=== PATIENT | female | born 1960 | race Caucasian/White ===

== ENCOUNTER 2022-02-27 16:23 | Inpatient (IN) | payer OTHER ==
[~2022-02-27] VITALS: Ht 165 cm; Wt 94.7 kg
[2022-02-27 16:32] LABS: BASOPHILS # (AUTO) 0.1 10^3/uL (0.0-0.1); BASOPHILS % (AUTO) 1 % (0-10); EOSINOPHILS # (AUTO) 0.3 10^3/uL (0.0-0.3); EOSINOPHILS % (AUTO) 2 % (0-10); HEMATOCRIT 48 % (35-52); HEMOGLOBIN 15.9 g/dL (11.5-16.0); LYMPHOCYTES # (AUTO) 4.8 10^3/uL (1.0-4.0); LYMPHOCYTES % (AUTO) 28 % (12-44); MEAN CORPUSCULAR HEMOGLOBIN 30 pg (25-34); MEAN CORPUSCULAR HGB CONC 33 g/dL (32-36); MEAN CORPUSCULAR VOLUME 90 fL (80-99); MEAN PLATELET VOLUME 10.4 fL (9.0-12.2); MONOCYTES # (AUTO) 1.4 10^3/uL (0.0-1.0); MONOCYTES % (AUTO) 8 % (0-12); NEUTROPHILS # (AUTO) 10.7 10^3/uL (1.8-7.8); NEUTROPHILS % (AUTO) 62 % (42-75); PLATELET COUNT 292 10^3/uL (130-400); WHITE BLOOD COUNT 17.3 10^3/uL (4.3-11.0)
[2022-02-27] MEDS ORDERED: hydrALAZINE (APESOLINE) 20 MG/ML VIAL IV STA (16:32)
[2022-02-27] MEDS ORDERED: ONDANSETRON 4 MG/2 ML (SDV) Z0FRAN ONE ×2 (16:43→17:01)
[2022-02-27] MEDS ORDERED: ONDANSETRON 4 MG/2 ML (SDV) Z0FRAN IVP STA ×2 (16:44→17:00)
[2022-02-27 16:50] LABS: PROTHROMBIN TIME PATIENT 13.7 SEC (12.2-14.7)
--- NOTE | 2022-02-27 16:51 | ED Chest Pain ---
General Chief Complaint: Chest Pain Stated Complaint: CHEST PAIN; SOB Source: patient History of Present Illness Date Seen by Provider: Feb 27, 2022 Time Seen by Provider: 16:25 Initial Comments 61-year-old female presenting with complaints of chest pain that started about 30 minutes prior to arrival. She states that she was also short of breath with this. She had taken her lisinopril 10 mg as well as her new medicine for high cholesterol. She also took aspirin at home. This resolved after her pain started 30 minutes ago. She states that it is just "pain" and cannot describe it in any more detail. She started the lisinopril and cholesterol medicines within the last week. She states at home her blood pressure was 240/106 when she was having chest pain. Prior to starting the lisinopril that had been running over 200 for her systolic pressure. In the last few days she said that her pressure was down into the 150s and 160s. She states that she was just sitting working on her schedule when the pain started. Timing/Duration: 1/2 hour Severity/Quality: severe ("pain") Location: substernal Radiation: no radiation Activities at Onset: rest Prior CP/Workup: angina ASA po METAL BASE BLOCKER: Yes NTG SL METAL BASE BLOCKER: No Associated Symptoms: No abdominal pain, No back pain; diaphoresis; No dizziness, No edema; fatigue; No fever/chills, No headache, No heartburn, No nausea/vomiting, No rash; shortness of breath; No swelling/lump in chest, No sy ncope Allergies and Home Medications Allergies Coded Allergies: meperidine (Verified Allergy, Unknown, 02/27/22) propoxyphene (Verified Allergy, Unknown, 02/27/22) Patient Home Medication List Home Medication List Reviewed: Yes Review of Systems Review of Systems Constitutional: No chills, No fever EENTM: No Symptoms Reported Respiratory: See HPI Cardiovascular: See HPI Gastrointestinal: No Symptoms Reported Genitourinary: No Symptoms Reported Musculoskeletal: no symptoms reported Skin: no symptoms reported Psychiatric/Neurological: No Symptoms Reported Endocrine: No Symptoms Reported Past Dbpekrb-Lctbyc-Tfqihn Hx Patient Social History Tobacco Use?: Yes Tobacco type used: Cigarettes Use of E-Cig and/or Vaping dev: No Substance use?: No Alcohol Use?: No Past Medical History Surgery/Hospitalization HX: Diabetes, hypertension, hypercholesterolemia Physical Exam Vital Signs Vital Signs - First Documented 02/27/22 02/27/22 16:23 17:44 Temp 36.2 Pulse 89 Resp 20 B/P (MAP) 208/82 (124) Pulse Ox 97 O2 Delivery Room Air O2 Flow Rate 4.00 Capillary Refill : Height, Weight, BMI Height: '" Weight: lbs. oz. kg; BMI Method: General Appearance: Anxious, Obese HEENT: PERRL/EOMI, Pharynx Normal Neck: Full Range of Motion, Normal Inspection, Non Tender, Supple Respiratory: Chest Non Tender, Lungs Clear, Normal Breath Sounds, No Accessory Muscle Use, No Respiratory Distress Cardiovascular: Regular Rate, Rhythm, Normal Peripheral Pulses Gastrointestinal: Normal Bowel Sounds, No Pulsatile Mass, Non Tender, Soft Rectal: Deferred Extremity: Normal Capillary Refill, Normal Inspection, No Pedal Edema Neurologic/Psychiatric: Alert, Oriented x3, elephant keeper II-XII Norm as Tested Skin: Normal Color, Warm/Dry Procedures/Interventions CPR: Patient went into ventricular fibrillation and and became unresponsive. CPR was started with [id number] ventilations to support her cardiac and respiratory systems. She did have 1 cardioversion performed with shock of 200 J. CPR was immediately restarted after the shock and patient became responsive about 30 to 45 seconds later. She was in a sinus rhythm at that point. Rhythm: V-Fibrillation Critical Care Note Critical Care Total Time (minutes) 60minutes Progress 60 minutes of critical care time was spent with the patient. Time excludes separately billable procedures. Patient history obtained from her directly,. Time was spent obtaining history from the patient, ordering tests and reviewing results, ordering interventions and reviewing response, discussion with consultants, documentation in the chart. Patient was at risk of cardiovascular collapse and did require cardioversion when she went into ventricular fibrillation. Progress/Results/Core Measures Results/Orders Lab Results Laboratory Tests Test 02/27/22 16:26 Range/Units White Blood Count 17.3 H 4.3-11.0 10^3/uL Red Blood Count 5.39 H 3.80-5.11 10^6/uL Hemoglobin 15.9 11.5-16.0 g/dL Hematocrit 48 35-52 % Mean Corpuscular Volume 90 80-99 fL Mean Corpuscular Hemoglobin 30 25-34 pg Mean Corpuscular Hemoglobin Concent 33 32-36 g/dL Red Cell Distribution Width 13.4 10.0-14.5 % Platelet Count 292 130-400 10^3/uL Mean Platelet Volume 10.4 9.0-12.2 fL Immature Granulocyte % (Auto) 0 % Neutrophils (%) (Auto) 62 42-75 % Lymphocytes (%) (Auto) 28 12-44 % Monocytes (%) (Auto) 8 0-12 % Eosinophils (%) (Auto) 2 0-10 % Basophils (%) (Auto) 1 0-10 % Neutrophils # (Auto) 10.7 H 1.8-7.8 10^3/uL Lymphocytes # (Auto) 4.8 H 1.0-4.0 10^3/uL Monocytes # (Auto) 1.4 H 0.0-1.0 10^3/uL Eosinophils # (Auto) 0.3 0.0-0.3 10^3/uL Basophils # (Auto) 0.1 0.0-0.1 10^3/uL Immature Granulocyte # (Auto) 0.1 0.0-0.1 10^3/uL Prothrombin Time 13.7 12.2-14.7 SEC INR Comment 1.0 0.8-1.4 Activated Partial Thromboplast Time 27 24-35 SEC Sodium Level 138 135-145 MMOL/L Potassium Level 3.7 3.6-5.0 MMOL/L Chloride Level 100 98-107 MMOL/L Carbon Dioxide Level 23 21-32 MMOL/L Anion Gap 15 H 5-14 MMOL/L Blood Urea Nitrogen 16 7-18 MG/DL Creatinine 0.55 L 0.60-1.30 MG/DL Estimat Glomerular Filtration Rate 103 BUN/Creatinine Ratio 29 Glucose Level 130 H 70-105 MG/DL Calcium Level 9.8 8.5-10.1 MG/DL Corrected Calcium 8.5-10.1 MG/DL Magnesium Level 2.0 1.6-2.4 MG/DL Total Bilirubin 0.3 0.1-1.0 MG/DL Aspartate Amino Transf (AST/SGOT) 21 5-34 U/L Alanine Aminotransferase (ALT/SGPT) 19 0-55 U/L Alkaline Phosphatase 130 40-136 U/L Troponin I < 0.30 <0.30 NG/ML Pro-B-Type Natriuretic Peptide 149.8 H <125.0 PG/ML Total Protein 7.5 6.4-8.2 GM/DL Albumin 4.6 H 3.2-4.5 GM/DL Lipase 46 8-78 U/L My Orders Orders - PROSPER VERDIN MD Cbc With Automated Diff (02/27/22 16:25) Magnesium (02/27/22 16:25) Chest 1 View Ap/Pa Only (02/27/22 16:25) Ekg Tracing (02/27/22 16:25) Comprehensive Metabolic Panel (02/27/22 16:25) Protime With Inr (02/27/22 16:25) Partial Thromboplastin Time (02/27/22 16:25) O2 (02/27/22 16:25) Monitor-Rhythm Ecg Trace Only (02/27/22 16:25) Ed Iv/Invasive Line Start (02/27/22 16:25) Lipase (02/27/22 16:25) Troponin I Fs (02/27/22 16:25) Probnp Fs (02/27/22 16:25) Hydralazine Injection (Apresoline Inject (02/27/22 16:32) Manual Differential (02/27/22 16:26) Ekg Tracing (02/27/22 16:43) Ondansetron Injection (Zofran Injectio (02/27/22 16:44) Ondansetron Injection (Zofran Injectio (02/27/22 16:43) Nitro Drip 88648 Mcg/D5w (Nitroglycerin (02/27/22 16:52) Heparin Drip 15030 Unit/500ml (Heparin (02/27/22 17:00) Heparin (Bolus Per Protocol) (Heparin (B (02/27/22 17:00) Initiate Heparin Acs Protocol (02/27/22 16:53) Morphine Injection (Morphine Injection (02/27/22 16:54) Nitro Drip 74287 Mcg/D5w (Nitroglycerin (02/27/22 16:53) Ondansetron Injection (Zofran Injectio (02/27/22 17:00) Ondansetron Injection (Zofran Injectio (02/27/22 17:01) Metoprolol Tartrate Injection (Lopressor (02/27/22 17:05) Lidocaine Drip (Xylocaine Drip) (02/27/22 17:12) Lidocaine 2% Bolus Syringe (Xylocaine Pete (02/27/22 17:13) Medications Given in ED Current Medications Medications Dose Ordered Sig/Donna Route Start Time Stop Time Status Last Admin Dose Admin Heparin Sodium (Porcine) ACS PROTOCOL 60 uni... PRN PRN IV 02/27/22 17:00 02/27/22 17:15 5,000 UNIT Nitroglycerin/ Dextrose 250 ml @ ud STK-MED ONCE IV 02/27/22 16:53 02/27/22 16:55 DC 02/27/22 17:05 6 MLS/HR Vital Signs/I&O 02/27/22 02/27/22 02/27/22 16:23 17:44 17:56 Temp 36.2 Pulse 89 87 Resp 20 18 B/P (MAP) 208/82 (124) 151/80 Pulse Ox 97 97 94 O2 Delivery Room Air Nasal Cannula Nasal Cannula O2 Flow Rate 4.00 4.00 Progress Progress Note #1: Progress Note Electrocardiogram does not show ST elevation. With her complaints of chest pain she had already taken aspirin at home. Will obtain labs as well as chest x-ray to look for sources of her chest pain. Progress Note #2: Time: 16:45 Progress Note came out and to call for help as the patient had become unresponsive. Upon entering the room patient was found to be in ventricular fibrillation. CPR was initiated and a code cart was obtained. She was placed on pads and 200 J shock delivered. CPR was resumed right after the shock was delivered. Patient became responsive approximately 45 seconds to a minute later. She then started having nausea with vomiting and was given Zofran 4 mg IV. Orders for heparin drip as well as nitroglycerin drip to try and help with her chest pain and blood pressure were ordered. The initial hydralazine was ordered was never administered. She had additional nausea so another 4 mg of Zofran was ordered and morphine 2 mg IV to try and help with her chest pain. Page placed at [phone] Edwards. Second page sent at [phone]. Called the cell phone at [phone]. Discussed with Dr. Ewdards he stated that he would take the patient directly to the [facility]. He did request that she get metoprolol 5 mg IV and if she was tolerating oral 50 mg of oral metoprolol. Give 75 mg bolus of lidocaine and initiated drip. EMS notified of stat transfer of patient to go to [facility] in [place]. Progress Note #3: Time: 17:21 Progress Note Her CBC shows elevated white blood cell count to 17.3 thousand. The chemistry panel shows no acute significant abnormality to account for her symptoms. Her magnesium was normal at 2. Her troponin and proBNP were not elevated. A second electrocardiogram was obtained and did not show any ST elevation but did have some ST depression. Her coags were normal. Initial ECG Impression Date: Feb 27, 2022 Initial ECG Impression Time: 16:28 Initial ECG Rate: 93 Initial ECG Rhythm: Normal Sinus Initial ECG Comparisson: No Previous ECG Available Comment Normal sinus rhythm with heart rate [address] elevation. [place] interval 167 ms. QT interval 325 ms with a QTc interval 376 ms. No prior tracing available for comparison. EKG : EKG Time: 16:48 Rate: 95 Rhythm: Normal Sinus ECG Comparisson: Changed Comment Sinus rhythm with heart rate 95 bpm. [place] interval [address] elevation. There is ST depression. QT interval 324 ms with a QTc interval [address] depression is unchanged from her first tracing 20 minutes earlier. Diagnostic Imaging Diagonstic Imaging: Xray Plain Films/CT/US/NM/MRI: chest Comments [facility]. [place], [place] NAME: MARLENE WEBBER [facility] REC#: [id number] PT STATUS: REG ER : 1960 PHYSICIAN: PROSPER VERDIN MD ADMIT DATE: 02/27/22/ER FS Draft Date of Exam:02/27/22 CHEST 1 VIEW AP/PA ONLY INDICATION: Chest pain. COMPARISON: No comparison available. FINDINGS: There is slight enlargement of the cardiac silhouette and slight prominence of the basilar interstitial markings which could conceivably be chronic given no priors. It is not possible to exclude mild interstitial edema or early interstitial pneumonia. There is no dense alveolar consolidation. There is no significant effusion evident. There is no pneumothorax. IMPRESSION: Mild prominence of the basilar interstitial markings. Interstitial edema or early interstitial pneumonia could not be excluded. As there are no priors, these interstitial changes could conceivably be chronic. Correlate for any known smoking history. Dictated on workstation # [id number] Dict: 02/27/22 1724 Trans: 02/27/22 1736 [facility] [id number] Interpreted by: NEGRITA CHRISTIANSON MD Electronically signed by: Reviewed: Reviewed by Me Departure Impression Primary Impression: Ventricular fibrillation seen on cafeteria monitor Additional Impressions: Chest pain at rest Elevated blood pressure reading with diagnosis of hypertension Disposition: 30 STILL A PATIENT Condition: Critical Departure-Patient Inst. Referrals: REBECCA BARTHOLOMEW MD (PCP) Primary Care Physician PROSPER VERDIN MD Feb 27, 2022 16:51
[2022-02-27] MEDS ORDERED: NITRO DRIP 25000 MCG/D5W 250 ML IV STA (16:52)
[2022-02-27] MEDS ORDERED: NITRO DRIP 25000 MCG/D5W 250 ML IV ONE ×2 (16:53→18:40)
[2022-02-27 16:54] LABS: ALKALINE PHOSPHATASE 130 U/L (40-136); BILIRUBIN,TOTAL 0.3 MG/DL (0.1-1.0); BUN/CREATININE RATIO 29; CALCIUM 9.8 MG/DL (8.5-10.1); CARBON DIOXIDE 23 MMOL/L (21-32); CHLORIDE 100 MMOL/L (98-107); CREATININE SERUM 0.55 MG/DL (0.60-1.30); GFR ESTIMATED 103; GLUCOSE 130 MG/DL (70-105); POTASSIUM 3.7 MMOL/L (3.6-5.0); SODIUM 138 MMOL/L (135-145)
[2022-02-27] MEDS ORDERED: morphine INJ 10 MG/ML 1ML (SYR OR VIAL) IVP STA (16:54)
[2022-02-27 16:55] LABS: ALANINE AMINOTRANSFERASE 19 U/L (0-55); ALBUMIN 4.6 GM/DL (3.2-4.5); LIPASE 46 U/L (8-78); TOTAL PROTEIN 7.5 GM/DL (6.4-8.2)
[2022-02-27] MEDS ORDERED: HEParin 1000 UNIT/ML (10ML VIAL) FOR BOLUS IV PRN (17:00)
[2022-02-27] MEDS ORDERED: HEParin DRIP 25000 UNIT/500ML 500 ML IV SCH (17:00)
[2022-02-27] MEDS ORDERED: meTOprolol 5 MG/5 ML (LOPRESSOR) VIAL IV STA (17:05)
[2022-02-27] MEDS ORDERED: LIDOCAINE DRIP 500 ML IV STA (17:12)
[2022-02-27] MEDS ORDERED: LIDOCAINE BOLUS 100 MG/5 ML (IMS) SYR IV STA (17:13)
--- NOTE | 2022-02-27 17:36 | Diagnostic Imaging Report ---
INDICATION: Chest pain. COMPARISON: No comparison available. FINDINGS: There is slight enlargement of the cardiac silhouette and slight prominence of the basilar interstitial markings which could conceivably be chronic given no priors. It is not possible to exclude mild interstitial edema or early interstitial pneumonia. There is no dense alveolar consolidation. There is no significant effusion evident. There is no pneumothorax. IMPRESSION: Mild prominence of the basilar interstitial markings. Interstitial edema or early interstitial pneumonia could not be excluded. As there are no priors, these interstitial changes could conceivably be chronic. Correlate for any known smoking history. Dictated by: Dictated on workstation # [id number]
[2022-02-27] MEDS ORDERED: fentaNYL INJ 100 MCG/2 ML AMP ONE (17:46)
[2022-02-27] MEDS ORDERED: NS IV 1000 ML 1,000 ML ONE ×2 (17:47→19:43)
[2022-02-27] MEDS ORDERED: HEParin (CATH LAB) 2,000 ML IV ONE (17:47)
[2022-02-27] MEDS ORDERED: LIDOCAINE 1% INJ 20 ML VIAL ONE (17:47)
[2022-02-27] MEDS ORDERED: MIDAZOLAM 5 MG/5 ML (VERSED) VIAL ONE (17:47)
[2022-02-27 18:04] LABS: EOSINOPHILS % (MANUAL) 5 %; LYMPHOCYTES % (MANUAL) 24 %; MONOCYTES % (MANUAL) 4 %; NEUTROPHILS % (MANUAL) 67 %
[2022-02-27] MEDS ORDERED: HEParin 1000 UNIT/ML (10ML VIAL) FOR BOLUS ONE (18:34)
[2022-02-27] MEDS ORDERED: EPTIFIBATIDE BOLUS 20 ML IV ONE (18:37)
[2022-02-27] MEDS ORDERED: CLOPIDOGREL 300 MG (PLAVIX) TABLET PO ONE (19:00)
--- NOTE | 2022-02-27 19:06 | Cardiology History & Physical ---
HPI-Cardiology Cardiology H&P Date of Admission 02-27-22 Primary Care Physician Admitting Physician: Attending Physician: Miguel Edwards MD [facility] Attending Physician Gerson Novak MD Consulting Physician [facility] 61 yo woman presented to ER at [facility] with approx 30 min or midsternal, severe chest discomfort, radiating to shoulders, never experienced before. Developed cardiac arrest due to VF in the ER. Had CPR performed for 3-4 min. Was defibrillated back to R and slowly regained consciousness. Continued to have chest pain. Was transferred to this hospital for emergency cardiac cath and treatment or her life-threatening, acute coronary syndrome. Emergency cardiac cath performed and a critical lesion in a large L Cx coronary artery was sten [place]. Review of Systems-Cardiology Review of Systems Constitutional: No weight loss, No weight gain Eyes: No vision change Ears/Nose/Throat: No ear discharge, No nasal drainage, No recent hearing loss Respiratory: As described under HPI Cardiovascular: As described under HPI Gastrointestinal: No constipation, No diarrhea, No vomiting Genitourinary: No dysuria, No hematuria Musculoskeletal: No back pain, No joint pain Psychiatric/Neurological: syncope (other than syncope during cardiac arrest today); No seizure, No focal weakness Hematologic: No bleeding abnormalities XAV-[id number]-Xapxlt Hx Patient Social History Have you traveled recently?: No Alcohol Use?: No Tobacco type used: Cigarettes Past Medical History PMH As described under Assessment. Family Medical History Family Medical History: No fam h/o early CAD Allergies and Home Medications Allergies Coded Allergies: meperidine (Verified Allergy, Unknown, 02/27/22) propoxyphene (Verified Allergy, Unknown, 02/27/22) Patient Home Medication List Home Medication List Reviewed: Yes Physical Exam-Cardiology Physical Exam Vital Signs/I&O 02/27/22 02/27/22 02/27/22 16:23 17:44 17:56 Temp 36.2 Pulse 89 87 Resp 20 18 B/P (MAP) 208/82 (124) 151/80 Pulse Ox 97 97 94 O2 Delivery Room Air Nasal Cannula Nasal Cannula O2 Flow Rate 4.00 4.00 Capillary Refill : Less Than 3 Seconds Constitutional: well-developed, well-nourished, other (somnolent but appropriately responsive) HEENT: PERRL, EOMI Neck: non-tender, carotid pulses are 2 + bilaterally Respiratory: No accessory muscle use; other (good, bilat air entry) Cardiovascular: regular rate-rhythm, S1 and S2, systolic murmur (soft NOEMI at card base) Gastrointestinal: No tender; soft; No guarding, No rebound; audible bowel sounds Extremities: No clubbing, No cyanosis, No significant edema Neurologic/Psychiatric: oriented x 3, other (moves all limbs equally) Skin: No rash on exposed areas Data Review Labs Laboratory Tests 02/27/22 16:26: White Blood Count 17.3H, Red Blood Count 5.39H, Hemoglobin 15.9, Hematocrit 48, Mean Corpuscular Volume 90, Mean Corpuscular Hemoglobin 30, Mean Corpuscular Hemoglobin Concent 33, Red Cell Distribution Width 13.4, Platelet Count 292, Mean Platelet Volume 10.4, Immature Granulocyte % (Auto) 0, Neutrophils (%) (Auto) 62, Lymphocytes (%) (Auto) 28, Monocytes (%) (Auto) 8, Eosinophils (%) (Auto) 2, Basophils (%) (Auto) 1, Neutrophils # (Auto) 10.7H, Lymphocytes # (Auto) 4.8H, Monocytes # (Auto) 1.4H, Eosinophils # (Auto) 0.3, Basophils # (Aut o) 0.1, Immature Granulocyte # (Auto) 0.1, Neutrophils % (Manual) 67, Lymphocytes % (Manual) 24, Monocytes % (Manual) 4, Eosinophils % (Manual) 5, Prothrombin Time 13.7, INR Comment 1.0, Activated Partial Thromboplast Time 27, Sodium Level 138, Potassium Level 3.7, Chloride Level 100, Carbon Dioxide Level 23, Anion Gap 15H, Blood Urea Nitrogen 16, Creatinine 0.55L, Estimat Glomerular Filtration Rate 103, BUN/Creatinine Ratio 29, Glucose Level 130H, Calcium Level 9.8, Corrected Calcium , Magnesium Level 2.0, Total Bilirubin 0.3, Aspartate Amino Transf (AST/SGOT) 21, Alanine Aminotransferase (ALT/SGPT) 19, Alkaline Phosphatase 130, Troponin I < 0.30, Pro-B-Type Natriuretic Peptide 149.8H, Total Protein 7.5, Albumin 4.6H, Lipase 46 Laboratory Tests 02/27/22 16:26 A/P-Cardiology Assessment/Admission Diagnosis Ac NSTEMI associated with cardiac arrest - Emergency card cath 02/27/22: LMCA ok, mid LCX 99% with NORBERTO 2 antegrade (tr eated with Skypoint 4 x 18 that reduced lesion to 0% and improved flow to NORBERTO 3), 30% distal LCX, 30% mid LAD, 40% prox RCA, LVEDP 30 mmHg, LVEF 50% DM II, borderline HTN HL Remote h/o hysterectomy Admission Status: Inpatient Order (span 2 midnights) Reason for Inpatient Admission: Ac NSTEMI and cardiac arrest Discussion and Recomendations * DAPT * Beta-daniele * Statin * Echo in am * Monitor labs * Discussed with pt and family Clinical Quality Measures AMI/AHF: ASA po Prior to arrival: Yes MIGUEL EDWARDS MD FACP [facility] CCDS Feb 27, 2022 19:06
[2022-02-27] MEDS ORDERED: ACETAMINOPHEN 325 MG TABLET PO PRN (19:30)
[2022-02-27] MEDS ORDERED: oxyCODONE/APAP 5/325MG (PERCOCET 5) TABLET PO PRN (19:30)
[2022-02-27] MEDS ORDERED: PATIENT MAY USE OWN MEDS, ALL PO SCH (19:30)
[2022-02-27] MEDS: NS IV 1000 ML 1,000 ML IV SCH (19:55)
[2022-02-27] MEDS: inSUlin ASPART (NovoLOG) 1 UNIT/0.01 ML (CHARGE PER UNIT) SC SCH (19:55)
[2022-02-27] MEDS ORDERED: ATROPINE INJ 0.4 MG/ML SDV ONE (20:00)
[2022-02-27] MEDS ORDERED: NS IV 500 ML 500 ML IV PRN (21:00)
[2022-02-28] MEDS: NS IV 1000 ML 1,000 ML IV SCH ×2 (04:19→23:36)
[2022-02-28 04:42] LABS: BASOPHILS % (AUTO) 0 % (0-10); EOSINOPHILS # (AUTO) 0.1 10^3/uL (0.0-0.3); EOSINOPHILS % (AUTO) 0 % (0-10); HEMATOCRIT 44 % (35-52); HEMOGLOBIN 14.2 g/dL (11.5-16.0); LYMPHOCYTES % (AUTO) 13 % (12-44); MEAN CORPUSCULAR HEMOGLOBIN 30 pg (25-34); MEAN CORPUSCULAR HGB CONC 32 g/dL (32-36); MEAN CORPUSCULAR VOLUME 92 fL (80-99); MEAN PLATELET VOLUME 10.5 fL (9.0-12.2); MONOCYTES # (AUTO) 1.2 10^3/uL (0.0-1.0); MONOCYTES % (AUTO) 8 % (0-12); NEUTROPHILS # (AUTO) 12.7 10^3/uL (1.8-7.8); NEUTROPHILS % (AUTO) 79 % (42-75); PLATELET COUNT 266 10^3/uL (130-400); WHITE BLOOD COUNT 16.1 10^3/uL (4.3-11.0)
[2022-02-28 04:50] LABS: ALBUMIN 3.8 GM/DL (3.2-4.5); POTASSIUM 4.6 MMOL/L (3.6-5.0)
[2022-02-28 04:52] LABS: TOTAL PROTEIN 6.4 GM/DL (6.4-8.2)
[2022-02-28 04:54] LABS: BILIRUBIN,TOTAL 0.6 MG/DL (0.1-1.0)
[2022-02-28 04:55] LABS: PHOSPHORUS 3.6 MG/DL (2.3-4.7)
[2022-02-28 04:56] LABS: CREATININE SERUM 0.64 MG/DL (0.60-1.30)
[2022-02-28] MEDS: POTASSIUM CL 10MEQ/50ML IVPB 50 ML IV SCH (05:01)
[2022-02-28] MEDS: KCL 20 MEQ TAB (K-DUR) PO SCH (05:01)
[2022-02-28] MEDS: inSUlin ASPART (NovoLOG) 1 UNIT/0.01 ML (CHARGE PER UNIT) SC SCH ×4 (05:01→20:07)
[2022-02-28] MEDS: MAGNESIUM 1 GM/100 ML IVPB 100 ML IV SCH (06:10)
--- NOTE | 2022-02-28 09:15 | Progress Note - Cardiology ---
Cardiology SOAP Progress Note Subjective: Sitting up in bed this morning. No c/o CP, SOB, palpitations, syncope or near syncope. C/O chest "soreness" from chest compressions. C/O mild right groin discomfort Objective: I&O/Vital Signs 02/28/22 02/28/22 02/28/22 02/28/22 20:00 20:00 20:00 20:28 Temp 36.4 36.4 Pulse 69 Resp 28 B/P (MAP) 102/47 (81) Pulse Ox 95 94 O2 Delivery Room Air Room Air 02/28/22 02/28/22 02/28/22 02/28/22 21:00 22:00 23:00 23:34 Pulse 62 63 62 Resp 12 18 12 B/P (MAP) 120/56 (89) 135/60 (87) 128/66 (83) Pulse Ox 90 95 96 96 O2 Delivery Room Air Room Air Room Air Room Air 02/28/22 03/01/22 03/01/22 03/01/22 23:52 00:00 01:00 01:00 Temp 36.9 Pulse 62 65 65 Resp 29 17 B/P (MAP) 136/57 (87) 131/94 (100) Pulse Ox 95 94 O2 Delivery Room Air Room Air 03/01/22 03/01/22 03/01/22 03/01/22 02:00 02:28 03:07 03:52 Pulse 66 54 Resp 10 13 B/P (MAP) 113/54 (74) 113/64 (97) Pulse Ox 92 100 99 100 O2 Delivery Room Air High Flow N/C High Flow N/C High Flow N/C O2 Flow Rate 2.00 2.00 2.00 03/01/22 03/01/22 03/01/22 03/01/22 04:00 04:00 05:00 06:00 Temp 36.7 Pulse 61 65 58 Resp 10 20 8 B/P (MAP) 113/53 (80) 123/57 (79) Pulse Ox 100 95 97 O2 Delivery High Flow N/C High Flow N/C High Flow N/C O2 Flow Rate 2.00 2.00 2.00 03/01/22 03/01/22 06:06 07:54 Temp 36.5 37.0 03/01/22 00:00 Intake Total 3010 ml Output Total 1700 ml Balance 1310 ml Side: right Groin site without hematoma: Yes Condition: DP/PT pulses palpable, extremity w/d/p Bruising: moderated bruising Constitutional: well-developed, well-nourished, other (somnolent but appropriately responsive) Respiratory: No accessory muscle use; other (good, bilat air entry) Cardiovascular: regular rate-rhythm, S1 and S2, systolic murmur (soft NOEMI at card base) Gastrointestional: No tender; soft; No guarding, No rebound; audible bowel sounds Extremities: No clubbing, No cyanosis, No significant edema Neurologic/Psychiatric: oriented x 3, other (moves all limbs equally) Skin: No rash on exposed areas Results/Procedures: Labs Laboratory Tests 02/28/22 10:44: Glucometer 109 02/28/22 16:21: Glucometer 104 02/28/22 21:02: Glucometer 114H 03/01/22 04:41: White Blood Count 13.5H, Red Blood Count 4.61, Hemoglobin 13.8, Hematocrit 43, Mean Corpuscular Volume 93, Mean Corpuscular Hemoglobin 30, Mean Corpuscular Hemoglobin Concent 32, Red Cell Distribution Width 13.3, Platelet Count 233, Mean Platelet Volume 10.9, Immature Granulocyte % (Auto) 0, Neutrophils (%) (Auto) 65, Lymphocytes (%) (Auto) 25, Monocytes (%) (Auto) 8, Eosinophils (%) (Auto) 1, Basophils (%) (Auto) 0, Neutrophils # (Auto) 8.8H, Lymphocytes # (Auto) 3.4, Monocytes # (Auto) 1.1H, Eosinophils # (Auto) 0.2, Basophils # (Auto) 0.1, Immature Granulocyte # (Auto) 0.1, Sodium Level 140, Potassium Level 4.2, Chloride Level 107, Carbon Dioxide Level 23, Anion Gap 10, Blood Urea Nitrogen 9, Creatinine 0.64, Estimat Glomerular Filtration Rate 99, BUN/Creatinine Ratio 14, Glucose Level 101, Calcium Level 9.1, Corrected Calcium 9.3, Phosphorus Level 3.1, Magnesium Level 1.8, Total Bilirubin 0.5, Aspartate Amino Transf (AST/SGOT) 65H, Alanine Aminotransferase (ALT/SGPT) 44, Alkaline Phosphatase 96, Total Protein 6.4, Albumin 3.7 Microbiology 02/27/22 MRSA Screen - Final, Complete MRSA not isolated A/P: Assessment: Ac NSTEMI associated with cardiac arrest - Emergency card cath 02/27/22: LMCA ok, mid LCX 99% with NORBERTO 2 antegrade (treated with Skypoint 4 x 18 that reduced lesion to 0% and improved flow to NORBERTO 3), 30% distal LCX, 30% mid LAD, 40% prox RCA, LVEDP 30 mmHg, LVEF 50% DM II, borderline HTN HL Remote h/o hysterectomy Plan: * Continue DAP, Beta-daniele, Statin * Echo pending * Monitor labs * Brief episode of SVT on tele this morning - asymptomatic * Increase activity today Clinical Quality Measures AMI/AHF: ASA po Prior to arrival: Yes CARITO WOODARD Feb 28, 2022 09:15
[2022-02-28] MEDS: CLOPIDOGREL 75 MG (PLAVIX) TABLET PO SCH (09:16)
[2022-02-28] MEDS: ASPIRIN 81 MG CHEW (CHILDREN'S ASA) PO SCH (09:17)
[2022-02-28] MEDS: meTOproloL SUCCINATE 50 MG (TOPROL XL) TAB PO SCH (09:17)
[2022-02-28] MEDS ORDERED: EPINEPHrine 0.1 MG/ML 10 ML (HOSPIRA) SYR IJ ONE (09:46)
[2022-02-28] MEDS ORDERED: CATHETER FLUSH 10 ML SYR IVP ONE (09:46)
--- NOTE | 2022-02-28 10:19 | Tele-ICU Progress Note ---
Progress Note Video assessment done , Hemodynamically stable Available charting reviewed, discussed with RN NO TELE-ICU CONSULT REQUESTED CONTINUE TO MONITOR PER USUAL TELE-ICU PROTOCOL No need for Tele-ICU interventions Plans as delineated by bedside physicians / consultants Focused Exam Height, Weight, BMI Height: '" Weight: lbs. oz. kg; 36.06 BMI Method: CARMENCITA MAN MD Feb 28, 2022 10:19
--- NOTE | 2022-02-28 12:22 | Progress Note - Cardiology ---
Cardiology SOAP Progress Note Subjective: No cp or palp or syncope Shortness of breath improving Gen weakness and malaise improving No n/v/d No focal weakness Objective: I&O/Vital Signs 02/28/22 02/28/22 02/28/22 02/28/22 01:00 01:00 02:00 03:00 Pulse 66 66 62 63 B/P (MAP) 114/55 (74) 109/57 (74) 111/51 (71) Pulse Ox 94 93 92 O2 Delivery Nasal Cannula Nasal Cannula Nasal Cannula O2 Flow Rate 2.00 2.00 2.00 02/28/22 02/28/22 02/28/22 02/28/22 03:09 03:10 04:00 05:00 Temp 36.1 Pulse 63 56 B/P (MAP) 118/55 (76) 115/54 (74) Pulse Ox 92 91 O2 Delivery Nasal Cannula Nasal Cannula Nasal Cannula Nasal Cannula O2 Flow Rate 2.00 2.00 2.00 2.00 02/28/22 02/28/22 02/28/22 02/28/22 05:07 05:27 05:27 06:00 Pulse 90 68 60 B/P (MAP) 113/48 (69) Pulse Ox 90 O2 Delivery Room Air Nasal Cannula O2 Flow Rate 2.00 02/28/22 02/28/22 02/28/22 02/28/22 07:00 07:12 08:00 08:00 Temp 36.1 Pulse 64 66 B/P (MAP) 125/61 (82) Pulse Ox 91 90 O2 Delivery Nasal Cannula Room Air O2 Flow Rate 2.00 02/28/22 02/28/22 02/28/22 02/28/22 08:00 09:00 10:00 10:36 Pulse 73 69 73 B/P (MAP) 136/74 (94) 111/58 (75) 138/53 (81) Pulse Ox 91 93 90 95 O2 Delivery Nasal Cannula Nasal Cannula Nasal Cannula Room Air O2 Flow Rate 2.00 2.00 2.00 02/28/22 11:00 Pulse 69 B/P (MAP) 146/70 (95) Pulse Ox 93 O2 Delivery Nasal Cannula O2 Flow Rate 2.00 02/28/22 00:00 Intake Total 0 ml Output Total 0 ml Balance 0 ml Side: right Groin site without hematoma: Yes Condition: DP/PT pulses palpable, extremity w/d/p Bruising: moderated bruising Constitutional: well-developed, well-nourished, other (somnolent but appropriately responsive) Respiratory: No accessory muscle use; other (good, bilat air entry) Cardiovascular: regular rate-rhythm, S1 and S2, systolic murmur (soft NOEMI at card base) Gastrointestional: No tender; soft; No guarding, No rebound; audible bowel sounds Extremities: No clubbing, No cyanosis, No significant edema Neurologic/Psychiatric: oriented x 3, other (moves all limbs equally) Skin: No rash on exposed areas Results/Procedures: Labs Laboratory Tests 02/27/22 16:26: White Blood Count 17.3H, Red Blood Count 5.39H, Hemoglobin 15.9, Hematocrit 48, Mean Corpuscular Volume 90, Mean Corpuscular Hemoglobin 30, Mean Corpuscular Hemoglobin Concent 33, Red Cell Distribution Width 13.4, Platelet Count 292, Mean Platelet Volume 10.4, Immature Granulocyte % (Auto) 0, Neutrophils (%) (Auto) 62, Lymphocytes (%) (Auto) 28, Monocytes (%) (Auto) 8, Eosinophils (%) (Auto) 2, Basophils (%) (Auto) 1, Neutrophils # (Auto) 10.7H, Lymphocytes # (Auto) 4.8H, Monocytes # (Auto) 1.4H, Eosinophils # (Auto) 0.3, Basophils # (Auto) 0.1, Immature Granulocyte # (Auto) 0.1, Neutrophils % (Manual) 67, Lymphocytes % (Manual) 24, Monocytes % (Manual) 4, Eosinophils % (Manual) 5, Prothrombin Time 13.7, INR Comment 1.0, Activated Partial Thromboplast Time 27, Sodium Level 138, Potassium Level 3.7, Chloride Level 100, Carbon Dioxide Level 23, Anion Gap 15H, Blood Urea Nitrogen 16, Creatinine 0.55L, Estimat Glomerular Filtration Rate 103, BUN/Creatinine Ratio 29, Glucose Level 130H, Calcium Level 9.8, Corrected Calcium , Magnesium Level 2.0, Total Bilirubin 0.3, Aspartate Amino Transf (AST/SGOT) 21, Alanine Aminotransferase (ALT/SGPT) 19, Alkaline Phosphatase 130, Troponin I < 0.30, Pro-B-Type Natriuretic Peptide 149.8H, Total Protein 7.5, Albumin 4.6H, Lipase 46 02/27/22 19:51: Glucometer 142H 02/27/22 20:24: Glucometer 151H 02/28/22 04:20: White Blood Count 16.1H, Red Blood Count 4.78, Hemoglobin 14.2, Hematocrit 44, Mean Corpuscular Volume 92, Mean Corpuscular Hemoglobin 30, Mean Corpuscular Hemoglobin Concent 32, Red Cell Distribution Width 13.3, Platelet Count 266, Mean Platelet Volume 10.5, Immature Granulocyte % (Auto) 0, Neutrophils (%) (Auto) 79H, Lymphocytes (%) (Auto) 13, Monocytes (%) (Auto) 8, Eosinophils (%) (Auto) 0, Basophils (%) (Auto) 0, Neutrophils # (Auto) 12.7H, Lymphocytes # (Auto) 2.0, Monocytes # (Auto) 1.2H, Eosinophils # (Auto) 0.1, Basophils # (Auto) 0.0, Immature Granulocyte # (Auto) 0.1, Sodium Level 138, Potassium Level 4.6, Chloride Level 106, Carbon Dioxide Level 21, Anion Gap 11, Blood Urea Nitrogen 12, Creatinine 0.64, Estimat Glomerular Filtration Rate 99, BUN/Creatinine Ratio 19, Glucose Level 128H, Calcium Level 9.0, Corrected Calcium 9.2, Magnesium Level 2.0, Total Bilirubin 0.6, Aspartate Amino Transf (AST/SGOT) 98H, Alanine Aminotransferase (ALT/SGPT) 47, Alkaline Phosphatase 90, Total Protein 6.4, Albumin 3.8, Phosphorus Level 3.6, Triglycerides Level 170H, Cholesterol Level 180, LDL Cholesterol Direct 120, VLDL Cholesterol 34, HDL Cholesterol 35L 02/28/22 10:44: Glucometer 109 A/P: Assessment: Ac NSTEMI associated with cardiac arrest - Emergency card cath 02/27/22: LMCA ok, mid LCX 99% with NORBERTO 2 antegrade (treated with Skypoint 4 x 18 that reduced lesion to 0% and improved flow to NORBERTO 3), 30% distal LCX, 30% mid LAD, 40% prox RCA, LVEDP 30 mmHg, LVEF 50% - 5-beat run of WCT on am of 02/28/22 DM II, borderline HTN HL Remote h/o hysterectomy Plan: * Continue DAP, Beta-daniele, Statin * Echo pending * Monitor labs * Brief episode of SVT on tele this morning - asymptomatic * Increase activity today Clinical Quality Measures AMI/AHF: ASA po Prior to arrival: Yes AMADO ROMERO MD FACP [facility] CCDS Feb 28, 2022 12:22
[2022-02-28] MEDS ORDERED: ASPI-1238 PO (14:10)
[2022-02-28] MEDS ORDERED: METF-397 PO (14:10)
[2022-02-28] MEDS ORDERED: ROSU10TA28 PO (14:10)
[2022-02-28] MEDS ORDERED: GABA300C PO (14:10)
[2022-02-28] MEDS ORDERED: LISI10TA25 PO (14:10)
[2022-03-01 05:38] LABS: BASOPHILS # (AUTO) 0.1 10^3/uL (0.0-0.1); BASOPHILS % (AUTO) 0 % (0-10); EOSINOPHILS # (AUTO) 0.2 10^3/uL (0.0-0.3); EOSINOPHILS % (AUTO) 1 % (0-10); HEMATOCRIT 43 % (35-52); HEMOGLOBIN 13.8 g/dL (11.5-16.0); LYMPHOCYTES # (AUTO) 3.4 10^3/uL (1.0-4.0); LYMPHOCYTES % (AUTO) 25 % (12-44); MEAN CORPUSCULAR HEMOGLOBIN 30 pg (25-34); MEAN CORPUSCULAR HGB CONC 32 g/dL (32-36); MEAN CORPUSCULAR VOLUME 93 fL (80-99); MEAN PLATELET VOLUME 10.9 fL (9.0-12.2); MONOCYTES # (AUTO) 1.1 10^3/uL (0.0-1.0); MONOCYTES % (AUTO) 8 % (0-12); NEUTROPHILS # (AUTO) 8.8 10^3/uL (1.8-7.8); NEUTROPHILS % (AUTO) 65 % (42-75); PLATELET COUNT 233 10^3/uL (130-400); WHITE BLOOD COUNT 13.5 10^3/uL (4.3-11.0)
[2022-03-01 06:01] LABS: ALBUMIN 3.7 GM/DL (3.2-4.5); BILIRUBIN,TOTAL 0.5 MG/DL (0.1-1.0); CALCIUM 9.1 MG/DL (8.5-10.1); CREATININE SERUM 0.64 MG/DL (0.60-1.30); MAGNESIUM 1.8 MG/DL (1.6-2.4); PHOSPHORUS 3.1 MG/DL (2.3-4.7); POTASSIUM 4.2 MMOL/L (3.6-5.0); TOTAL PROTEIN 6.4 GM/DL (6.4-8.2)
[2022-03-01] MEDS: POTASSIUM CL 10MEQ/50ML IVPB 50 ML IV SCH (06:05)
[2022-03-01] MEDS: inSUlin ASPART (NovoLOG) 1 UNIT/0.01 ML (CHARGE PER UNIT) SC SCH ×4 (06:05→21:34)
[2022-03-01] MEDS: MAGNESIUM 1 GM/100 ML IVPB 100 ML IV SCH (06:05)
[2022-03-01] MEDS: KCL 20 MEQ TAB (K-DUR) PO SCH (06:05)
[2022-03-01] MEDS: CLOPIDOGREL 75 MG (PLAVIX) TABLET PO SCH (08:31)
[2022-03-01] MEDS: meTOproloL SUCCINATE 50 MG (TOPROL XL) TAB PO SCH (08:31)
[2022-03-01] MEDS: ASPIRIN 81 MG CHEW (CHILDREN'S ASA) PO SCH (08:31)
--- NOTE | 2022-03-01 10:02 | Progress Note - Cardiology ---
Cardiology SOAP Progress Note Subjective: Sitting up on the side of the bed States she feels good No c/o CP, SOB, palpitations, syncope or near syncope No c/o n/v/d Objective: I&O/Vital Signs 03/02/22 03/02/22 03/02/22 03/02/22 00:07 01:00 03:47 07:04 Temp 36.7 36.0 Pulse 63 60 64 69 Resp 18 20 B/P (MAP) 111/74 (86) 113/73 (86) Pulse Ox 95 95 O2 Delivery Room Air Room Air 03/02/22 08:40 Temp 36.5 Pulse 63 Resp 18 B/P (MAP) 113/68 (83) Pulse Ox 93 O2 Delivery Room Air 03/02/22 00:00 Intake Total 1390 ml Output Total 600 ml Balance 790 ml Side: right Groin site without hematoma: Yes Condition: DP/PT pulses palpable, extremity w/d/p Bruising: moderated bruising Constitutional: well-developed, well-nourished, other (somnolent but appropriately responsive) Respiratory: No accessory muscle use; other (good, bilat air entry) Cardiovascular: regular rate-rhythm, S1 and S2, systolic murmur (soft NOEMI at card base) Gastrointestional: No tender; soft; No guarding, No rebound; audible bowel sounds Extremities: No clubbing, No cyanosis, No significant edema Neurologic/Psychiatric: oriented x 3, other (moves all limbs equally) Skin: No rash on exposed areas Results/Procedures: Labs Laboratory Tests 03/01/22 11:21: Glucometer 86 03/01/22 15:30: Glucometer 104 03/01/22 20:17: Glucometer 123H 03/02/22 05:37: Glucometer 123H 03/02/22 05:48: White Blood Count 14.9H, Red Blood Count 4.85, Hemoglobin 14.4, Hematocrit 44, Mean Corpuscular Volume 91, Mean Corpuscular Hemoglobin 30, Mean Corpuscular Hemoglobin Concent 33, Red Cell Distribution Width 13.2, Platelet Count 251, Mean Platelet Volume 10.9, Immature Granulocyte % (Auto) 1, Neutrophils (%) (Auto) 66, Lymphocytes (%) (Auto) 23, Monocytes (%) (Auto) 8, Eosinophils (%) (Auto) 2, Basophils (%) (Auto) 1, Neutrophils # (Auto) 9.9H, Lymphocytes # (Au to) 3.4, Monocytes # (Auto) 1.2H, Eosinophils # (Auto) 0.3, Basophils # (Auto) 0.1, Immature Granulocyte # (Auto) 0.1, Sodium Level 139, Potassium Level 4.1, Chloride Level 104, Carbon Dioxide Level 23, Anion Gap 12, Blood Urea Nitrogen 11, Creatinine 0.61, Estimat Glomerular Filtration Rate 100, BUN/Creatinine Ratio 18, Glucose Level 113H, Calcium Level 9.7, Corrected Calcium 9.7, Total Bilirubin 0.6, Aspartate Amino Transf (AST/SGOT) 34, Alanine Aminotransferase ( ALT/SGPT) 39, Alkaline Phosphatase 101, Total Protein 7.1, Albumin 4.0 Microbiology 02/27/22 MRSA Screen - Final, Complete MRSA not isolated A/P: Assessment: Ac NSTEMI associated with cardiac arrest - Emergency card cath 02/27/22: LMCA ok, mid LCX 99% with NORBERTO 2 antegrade (treated with Skypoint 4 x 18 that reduced lesion to 0% and improved flow to NORBERTO 3), 30% distal LCX, 30% mid LAD, 40% prox RCA, LVEDP 30 mmHg, LVEF 50% - 5-beat run of WCT on am of 02/28/22 DM II, borderline HTN HL Remote h/o hysterectomy Plan: * Continue DAP, Beta-daniele, Statin * Echo pending * Monitor labs * Brief episode of WCT on tele of 02-28-22 - asymptomatic - no further episodes * Increase activity today Clinical Quality Measures AMI/AHF: ASA po Prior to arrival: Yes CARITO WOODARD Mar 01, 2022 10:02
[2022-03-01] MEDS: NS IV 1000 ML 1,000 ML IV SCH (13:15)
[2022-03-01 16:00] VITALS: BP 128/62
--- NOTE | 2022-03-01 16:45 | Progress Note - Cardiology ---
Cardiology SOAP Progress Note Subjective: No cp or palp or syncope or shortness of breath No n/v/d No focal weakness No swelling No groin or leg discomfort Objective: I&O/Vital Signs 03/01/22 03/01/22 03/01/22 03/01/22 05:00 06:00 06:06 07:00 Temp 36.5 Pulse 65 58 87 Resp 20 8 22 B/P (MAP) 123/57 (79) 110/58 (75) Pulse Ox 95 97 93 O2 Delivery High Flow N/C High Flow N/C High Flow N/C O2 Flow Rate 2.00 2.00 2.00 03/01/22 03/01/22 03/01/22 03/01/22 07:32 07:44 07:54 08:00 Temp 37.0 Pulse 72 64 Resp 17 B/P (MAP) Pulse Ox 95 91 O2 Delivery Room Air High Flow N/C O2 Flow Rate 2.00 03/01/22 03/01/22 03/01/22 03/01/22 09:00 11:45 12:00 12:57 Temp 36.5 Pulse 80 66 Resp 24 B/P (MAP) Pulse Ox 95 98 O2 Delivery High Flow N/C Room Air O2 Flow Rate 2.00 03/01/22 03/01/22 03/01/22 16:00 16:00 16:36 Temp 36.2 37.3 Pulse 65 Resp 18 B/P (MAP) 128/62 (84) Pulse Ox 95 95 O2 Delivery Room Air Room Air 03/01/22 00:00 Intake Total 3010 ml Output Total 1700 ml Balance 1310 ml Side: right Groin site without hematoma: Yes Condition: DP/PT pulses palpable, extremity w/d/p Bruising: moderated bruising Constitutional: well-developed, well-nourished, other (somnolent but appropriately responsive) Respiratory: No accessory muscle use; other (good, bilat air entry) Cardiovascular: regular rate-rhythm, S1 and S2, systolic murmur (soft NOEMI at card base) Gastrointestional: No tender; soft; No guarding, No rebound; audible bowel sounds Extremities: No clubbing, No cyanosis, No significant edema Neurologic/Psychiatric: oriented x 3, other (moves all limbs equally) Skin: No rash on exposed areas Results/Procedures: Labs Laboratory Tests 02/28/22 21:02: Glucometer 114H 03/01/22 04:41: White Blood Count 13.5H, Red Blood Count 4.61, Hemoglobin 13.8, Hematocrit 43, Mean Corpuscular Volume 93, Mean Corpuscular Hemoglobin 30, Mean Corpuscular Hemoglobin Concent 32, Red Cell Distribution Width 13.3, Platelet Count 233, Mean Platelet Volume 10.9, Immature Granulocyte % (Auto) 0, Neutrophils (%) (Auto) 65, Lymphocytes (%) (Auto) 25, Monocytes (%) (Auto) 8, Eosinophils (%) (Auto) 1, Basophils (%) (Auto) 0, Neutrophils # (Auto) 8.8H, Lymphocytes # (Auto) 3.4, Monocytes # (Auto) 1.1H, Eosinophils # (Auto) 0.2, Basophils # (Auto) 0.1, Immature Granulocyte # (Auto) 0.1, Sodium Level 140, Potassium Level 4.2, Chloride Level 107, Carbon Dioxide Level 23, Anion Gap 10, Blood Urea Nitrogen 9, Creatinine 0.64, Estimat Glomerular Filtration Rate 99, BUN/Creatinine Ratio 14, Glucose Level 101, Calcium Level 9.1, Corrected Calcium 9.3, Phosphorus Level 3.1, Magnesium Level 1.8, Total Bilirubin 0.5, Aspartate Amino Transf (AST/SGOT) 65H, Alanine Aminotransferase (ALT/SGPT) 44, Alkaline Phosphatase 96, Total Protein 6.4, Albumin 3.7 03/01/22 11:21: Glucometer 86 03/01/22 15:30: Glucometer 104 Microbiology 02/27/22 MRSA Screen - Final, Complete MRSA not isolated A/P: Assessment: Ac NSTEMI associated with cardiac arrest - Emergency card cath 02/27/22: LMCA ok, mid LCX 99% with NORBERTO 2 antegrade (treated with Skypoint 4 x 18 that reduced lesion to 0% and improved flow to NORBERTO 3), 30% distal LCX, 30% mid LAD, 40% prox RCA, LVEDP 30 mmHg, LVEF 50% - 5-beat run of WCT on am of 02/28/22 - Echo on 02/28/22: LVEF 60-65%, mild conc LVH DM II, borderline HTN HL Remote h/o hysterectomy Plan: * Continue DAP, Beta-daniele, Statin * No recurrence of WCT in more than 24 hrs * Monitor labs * Transfer to floor with tele * Increase activity today Clinical Quality Measures AMI/AHF: ASA po Prior to arrival: Yes AMADO ROMERO MD FACP [facility] CCDS Mar 01, 2022 16:45
[2022-03-01 19:01] VITALS: BP 153/67
[2022-03-02 00:07] VITALS: BP 111/74
[2022-03-02 03:47] VITALS: BP 113/73
[2022-03-02] MEDS: inSUlin ASPART (NovoLOG) 1 UNIT/0.01 ML (CHARGE PER UNIT) SC SCH (05:42)
[2022-03-02 06:12] LABS: BASOPHILS # (AUTO) 0.1 10^3/uL (0.0-0.1); BASOPHILS % (AUTO) 1 % (0-10); EOSINOPHILS # (AUTO) 0.3 10^3/uL (0.0-0.3); EOSINOPHILS % (AUTO) 2 % (0-10); HEMATOCRIT 44 % (35-52); HEMOGLOBIN 14.4 g/dL (11.5-16.0); LYMPHOCYTES # (AUTO) 3.4 10^3/uL (1.0-4.0); LYMPHOCYTES % (AUTO) 23 % (12-44); MEAN CORPUSCULAR HEMOGLOBIN 30 pg (25-34); MEAN CORPUSCULAR HGB CONC 33 g/dL (32-36); MEAN CORPUSCULAR VOLUME 91 fL (80-99); MEAN PLATELET VOLUME 10.9 fL (9.0-12.2); MONOCYTES # (AUTO) 1.2 10^3/uL (0.0-1.0); MONOCYTES % (AUTO) 8 % (0-12); NEUTROPHILS # (AUTO) 9.9 10^3/uL (1.8-7.8); NEUTROPHILS % (AUTO) 66 % (42-75); PLATELET COUNT 251 10^3/uL (130-400); WHITE BLOOD COUNT 14.9 10^3/uL (4.3-11.0)
[2022-03-02 06:25] LABS: BILIRUBIN,TOTAL 0.6 MG/DL (0.1-1.0); CALCIUM 9.7 MG/DL (8.5-10.1); CREATININE SERUM 0.61 MG/DL (0.60-1.30); POTASSIUM 4.1 MMOL/L (3.6-5.0); TOTAL PROTEIN 7.1 GM/DL (6.4-8.2)
[2022-03-02 08:40] VITALS: BP 113/68
[2022-03-02] MEDS: meTOproloL SUCCINATE 50 MG (TOPROL XL) TAB PO SCH (09:47)
[2022-03-02] MEDS: ASPIRIN 81 MG CHEW (CHILDREN'S ASA) PO SCH (09:47)
[2022-03-02] MEDS: CLOPIDOGREL 75 MG (PLAVIX) TABLET PO SCH (09:47)
--- NOTE | 2022-03-02 10:07 | Progress Note - Cardiology ---
Cardiology SOAP Progress Note Objective: I&O/Vital Signs 03/02/22 03/02/22 03/02/22 03/02/22 00:07 01:00 03:47 07:04 Temp 36.7 36.0 Pulse 63 60 64 69 Resp 18 20 B/P (MAP) 111/74 (86) 113/73 (86) Pulse Ox 95 95 O2 Delivery Room Air Room Air 03/02/22 08:40 Temp 36.5 Pulse 63 Resp 18 B/P (MAP) 113/68 (83) Pulse Ox 93 O2 Delivery Room Air 03/02/22 00:00 Intake Total 1390 ml Output Total 600 ml Balance 790 ml Side: right Groin site without hematoma: Yes Condition: DP/PT pulses palpable, extremity w/d/p Bruising: moderated bruising Constitutional: well-developed, well-nourished, other (somnolent but appropriately responsive) Respiratory: No accessory muscle use; other (good, bilat air entry) Cardiovascular: regular rate-rhythm, S1 and S2, systolic murmur (soft NOEMI at card base) Gastrointestional: No tender; soft; No guarding, No rebound; audible bowel sounds Extremities: No clubbing, No cyanosis, No significant edema Neurologic/Psychiatric: oriented x 3, other (moves all limbs equally) Skin: No rash on exposed areas Results/Procedures: Labs Laboratory Tests 03/01/22 15:30: Glucometer 104 03/01/22 20:17: Glucometer 123H 03/02/22 05:37: Glucometer 123H 03/02/22 05:48: White Blood Count 14.9H, Red Blood Count 4.85, Hemoglobin 14.4, Hematocrit 44, Mean Corpuscular Volume 91, Mean Corpuscular Hemoglobin 30, Mean Corpuscular Hemoglobin Concent 33, Red Cell Distribution Width 13.2, Platelet Count 251, Mean Platelet Volume 10.9, Immature Granulocyte % (Auto) 1, Neutrophils (%) ( Auto) 66, Lymphocytes (%) (Auto) 23, Monocytes (%) (Auto) 8, Eosinophils (%) (Auto) 2, Basophils (%) (Auto) 1, Neutrophils # (Auto) 9.9H, Lymphocytes # (Auto) 3.4, Monocytes # (Auto) 1.2H, Eosinophils # (Auto) 0.3, Basophils # (Auto) 0.1, Immature Granulocyte # (Auto) 0.1, Sodium Level 139, Potassium Level 4.1, Chloride Level 104, Carbon Dioxide Level 23, Anion Gap 12, Blood Urea Nitrogen 11, Creatinine 0.61, Estimat Glomerular Filtration Rate 100, BUN/Creatinine Ratio 18, Glucose Level 113H, Calcium Level 9.7, Corrected Calcium 9.7, Total Bilirubin 0.6, Aspartate Amino Transf (AST/SGOT) 34, Alanine Aminotransferase (ALT/SGPT) 39, Alkaline Phosphatase 101, Total Protein 7.1, Albumin 4.0 Microbiology 02/27/22 MRSA Screen - Final, Complete MRSA not isolated A/P: Assessment: Ac NSTEMI associated with cardiac arrest - Emergency card cath 02/27/22: LMCA ok, mid LCX 99% with NORBERTO 2 antegrade (treated with Skypoint 4 x 18 that reduced lesion to 0% and improved flow to NORBERTO 3), 30% distal LCX, 30% mid LAD, 40% prox RCA, LVEDP 30 mmHg, LVEF 50% - 5-beat run of WCT on am of 02/28/22 - no further episodes in greater than 24 hrs. - Echo on 02/28/22: LVEF 60-65%, mild conc LVH DM II, borderline HTN HL Remote h/o hysterectomy Plan: * Continue DAP, Beta-daniele, Statin * No recurrence of WCT in more than 24 hrs * Monitor labs * Ok to discharge home today with out pt f/u in 1 week Clinical Quality Measures AMI/AHF: ASA po Prior to arrival: Yes CARITO WOODARD Mar 02, 2022 10:07
[2022-03-02] MEDS ORDERED: CLOP75TA28 PO (10:10)
[2022-03-02] MEDS ORDERED: ASPI81TA64 PO (10:10)
[2022-03-02] MEDS ORDERED: ATOR80TA76 PO (10:10)
[2022-03-02] MEDS ORDERED: METO50TA7 PO (10:10)
--- NOTE | 2022-03-02 10:11 | Discharge Inst-Cardiology ---
Discharge Inst-Cardiac Discharge Medications New Medications: Aspirin (Children's Aspirin) 81 Mg Tab.chew 81 MG PO DAILY, #90 TAB 3 Refills Atorvastatin Calcium (Atorvastatin Calcium) 80 Mg Tablet 80 MG PO HS, #90 TAB 3 Refills Clopidogrel Bisulfate (Clopidogrel) 75 Mg Tablet 75 MG PO DAILY, #90 TAB 3 Refills Metoprolol Succinate (Metoprolol Succinate) 50 Mg Tab.er.24h 50 MG PO DAILY, #90 TAB 3 Refills Continued Medications: Gabapentin (Neurontin) 300 Mg Capsule 300 MG PO HS, CAP Metformin HCl (Metformin HCl) 500 Mg Tablet 500 MG PO 1700, TAB Discontinued Medications: Aspirin (Aspirin EC) 81 Mg Tablet.dr 81 MG PO DAILY, TAB Lisinopril (Lisinopril) 10 Mg Tablet 10 MG PO 1700, TAB Rosuvastatin Calcium (Rosuvastatin Calcium) 10 Mg Tablet 10 MG PO 1700, TAB New, Converted or Re-Newed RX: Transmitted to Pharmacy Patient Instructions Patient Instructions: Please schedule appointment to see Dr. Edwards in 1 week CARITO WOODARD Mar 02, 2022 10:11
--- NOTE | 2022-03-02 10:17 | Cardiology Discharge Summary ---
Diagnosis/Chief Complaint Date of Admission Feb 27, 2022 at 19:16 Date of Discharge 03-02-22 Admission Diagnosis Ac NSTEMI associated with cardiac arrest - Emergency card cath 02/27/22: LMCA ok, mid LCX 99% with NORBERTO 2 antegrade (treated with Skypoint 4 x 18 that reduced lesion to 0% and improved flow to TI [place] 3), 30% distal LCX, 30% mid LAD, 40% prox RCA, LVEDP 30 mmHg, LVEF 50% DM II, borderline HTN HL Remote h/o hysterectomy Final/Discharge Diagnosis Ac NSTEMI associated with cardiac arrest - Emergency card cath 02/27/22: LMCA ok, mid LCX 99% with NORBERTO 2 antegrade (treated with Skypoint 4 x 18 that reduced lesion to 0% and improved flow to NORBERTO 3), 30% distal LCX, 30% mid LAD, 40% prox RCA, LVEDP 30 mmHg, LVEF 50% - 5-beat run of WCT on am of 02/28/22 - no further episodes in greater than 24 hrs. - Echo on 02/28/22: LVEF 60-65%, mild conc LVH DM II, borderline HTN HL Remote h/o hysterectomy Chief Complaint/HPI Chief Complaint/HPI 61 yo woman presented to ER at [facility] with approx 30 min or midsternal, severe chest discomfort, radiating to shoulders, never experienced before. Developed cardiac arrest due to VF in the ER. Had CPR performed for 3-4 min. Was defibrillated back to NSR and slowly regained consciousness. Continued to have chest pain. Was transferred to this hospital for emergency cardiac cath and treatment or her life-threatening, acute coronary syndrome. Emergency cardiac cath performed and a critical lesion in a large L Cx coronary artery was stented. Discharge Summary Procedures Cardiac cath - see cardiac cath report of 02-27-22 Discharge Physical Examination As per progress note of 03-02-22 Hospital Course Pending Labs Laboratory Tests 03/02/22 05:37: Glucometer 123 03/02/22 05:48: White Blood Count 14.9, Red Blood Count 4.85, Hemoglobin 14.4, Hematocrit 44, Mean Corpuscular Volume 91, Mean Corpuscular Hemoglobin 30, Mean Corpuscular Hemoglobin Concent 33, Red Cell Distribution Width 13.2, Platelet Count 251, Mean Platelet Volume 10.9, Immature Granulocyte % (Auto) 1, Neutrophils (%) (Auto) 66, Lymphocytes (%) (Auto) 23, Monocytes (%) (Auto) 8, Eosinophils (%) (Auto) 2, Basophils (%) (Auto) 1, Neutrophils # (Auto) 9.9, Lymphocytes # (Auto) 3.4, Monocytes # (Auto) 1.2, Eosinophils # (Auto) 0.3, Basophils # (Auto) 0.1, Immature Granulocyte # (Auto) 0.1, Sodium Level 139, Potassium Level 4.1, Chloride Level 104, Carbon Dioxide Level 23, Anion Gap 12, Blood Urea Nitrogen 11, Creatinine 0.61, Estimat Glomerular Filtration Rate 100, BUN/Creatinine Ratio 18, Glucose Level 113, Calcium Level 9.7, Corrected Calcium 9.7, Total Bilirubin 0.6, Aspartate Amino Transf (AST/SGOT) 34, Alanine Aminotransferase (ALT/SGPT) 39, Alkaline Phosphatase 101, Total Protein 7.1, Albumin 4.0 Discussion & Recommendations Discussion As per progress note of 03-02-22 Home Medications Reviewed patient Home Medication Reconciliation performed by pharmacy medication reconciliations rv repair technician and/or nursing. Patients Allergies have been reviewed. Discharge Home Medications: Reviewed and agree with Discharge Medication list on patient's Discharge In struction sheet Clinical Quality Measures AMI/AHF: ASA po Prior to arrival: Yes CARITO WOODARD Mar 02, 2022 10:17
--- NOTE | 2022-03-02 11:55 | Progress Note - Cardiology ---
Cardiology SOAP Progress Note Subjective: No cp or palp or syncope or shortness of breath No n/v/d No swelling No focal weakness No groin or leg discomfort Wishes to go home Objective: I&O/Vital Signs 03/02/22 03/02/22 03/02/22 03/02/22 00:07 01:00 03:47 07:04 Temp 36.7 36.0 Pulse 63 60 64 69 Resp 18 20 B/P (MAP) 111/74 (86) 113/73 (86) Pulse Ox 95 95 O2 Delivery Room Air Room Air 03/02/22 08:40 Temp 36.5 Pulse 63 Resp 18 B/P (MAP) 113/68 (83) Pulse Ox 93 O2 Delivery Room Air 03/02/22 00:00 Intake Total 1390 ml Output Total 600 ml Balance 790 ml Side: right Groin site without hematoma: Yes Condition: DP/PT pulses palpable, extremity w/d/p Bruising: moderated bruising Constitutional: well-developed, well-nourished, other (somnolent but appropriately responsive) Respiratory: No accessory muscle use; other (good, bilat air entry) Cardiovascular: regular rate-rhythm, S1 and S2, systolic murmur (soft NOEMI at card base) Gastrointestional: No tender; soft; No guarding, No rebound; audible bowel sounds Extremities: No clubbing, No cyanosis, No significant edema Neurologic/Psychiatric: oriented x 3, other (moves all limbs equally) Skin: No rash on exposed areas Results/Procedures: Labs Laboratory Tests 03/01/22 15:30: Glucometer 104 03/01/22 20:17: Glucometer 123H 03/02/22 05:37: Glucometer 123H 03/02/22 05:48: White Blood Count 14.9H, Red Blood Count 4.85, Hemoglobin 14.4, Hematocrit 44, Mean Corpuscular Volume 91, Mean Corpuscular Hemoglobin 30, Mean Corpuscular Hemoglobin Concent 33, Red Cell Distribution Width 13.2, Platelet Count 251, Mean Platelet Volume 10.9, Immature Granulocyte % (Auto) 1, Neutrophils (%) (Auto) 66, Lymphocytes (%) (Auto) 23, Monocytes (%) (Auto) 8, Eosinophils (%) (Auto) 2, Basophils (%) (Auto) 1, Neutrophils # (Auto) 9.9H, Lymphocytes # (Auto) 3.4, Monocytes # (Auto) 1.2H, Eosinophils # (Auto) 0.3, Basophils # (Auto) 0.1, Immature Granulocyte # (Auto) 0.1, Sodium Level 139, Potassium Level 4.1, Chloride Level 104, Carbon Dioxide Level 23, Anion Gap 12, Blood Urea Nitrogen 11, Creatinine 0.61, Estimat Glomerular Filtration Rate 100, BUN/Creatinine Ratio 18, Glucose Level 113H, Calcium Level 9.7, Corrected Calcium 9.7, Total Bilirubin 0.6, Aspartate Amino Transf (AST/SGOT) 34, Alanine Aminotransferase (ALT/SGPT) 39, Alkaline Phosphatase 101, Total Protein 7.1, Albumin 4.0 Microbiology 02/27/22 MRSA Screen - Final, Complete MRSA not isolated Laboratory Tests 03/01/22 04:41 03/02/22 05:48 A/P: Assessment: Ac NSTEMI associated with cardiac arrest - Emergency card cath 02/27/22: LMCA ok, mid LCX 99% with NORBERTO 2 antegrade (treated with Skypoint 4 x 18 that reduced lesion to 0% and improved flow to NORBERTO 3), 30% distal LCX, 30% mid LAD, 40% prox RCA, LVEDP 30 mmHg, LVEF 50% DM II, borderline HTN HL Remote h/o hysterectomy Plan: * Continue DAPT, Beta-daniele, Statin * No recurrence of WCT in more than 48 hrs * Monitor labs * Ok to discharge home today with out pt f/u in 1 week Clinical Quality Measures AMI/AHF: ASA po Prior to arrival: Yes AMADO ROMERO MD [facility] CCDS Mar 02, 2022 11:55
--- NOTE | 2022-03-02 11:57 | Cardiology Discharge Summary ---
Diagnosis/Chief Complaint Date of Admission Feb 27, 2022 at 19:16 Date of Discharge 03/02/22 Final/Discharge Diagnosis Ac NSTEMI associated with cardiac arrest - Emergency card cath 02/27/22: LMCA ok, mid LCX 99% with NORBERTO 2 antegrade (treated with Skypoint 4 x 18 that reduced lesion to 0% and improved flow to NORBERTO 3), 30% distal LCX, 30% mid LAD, 40% prox RCA, LVEDP 30 mmHg, LVEF 50% DM II, borderline HTN HL Remote h/o hysterectomy Chief Complaint/HPI Chief Complaint/HPI 61 yo woman presented to ER at [facility] with approx 30 min or midsternal, severe chest discomfort, radiating to shoulders, never experienced before. Developed cardiac arrest due to VF in the ER. Had CPR performed for 3-4 min. Was defibrillated back to NSR and slowly regained consciousness. Continued to have chest pain. Was transferred to this hospital for emergency cardiac cath and treatment or her life-threatening, acute coronary syndrome. Emergency cardiac cath performed and a critical lesion in a large L Cx coronary artery was stented. Please refer to our progress note of 03/02/22 (today) for condition at discharge. Discharge Summary Procedures . Hospital Course Pending Labs Laboratory Tests 03/02/22 05:37: Glucometer 123 03/02/22 05:48: White Blood Count 14.9, Red Blood Count 4.85, Hemoglobin 14.4, Hematocrit 44, Mean Corpuscular Volume 91, Mean Corpuscular Hemoglobin 30, Mean Corpuscular Hemoglobin Concent 33, Red Cell Distribution Width 13.2, Platelet Count 251, Mean Platelet Volume 10.9, Immature Granulocyte % (Auto) 1, Neutrophils (%) (Auto) 66, Lymphocytes (%) (Auto) 23, Monocytes (%) (Auto) 8, Eosinophils (%) (Auto) 2, Basophils (%) (Auto) 1, Neutrophils # (Auto) 9.9, Lymphocytes # (Auto) 3.4, Monocytes # (Auto) 1.2, Eosinophils # (Auto) 0.3, Basophils # (Auto) 0.1, Immature Granulocyte # (Auto) 0.1, Sodium Level 139, Potassium Level 4.1, Chloride Level 104, Carbon Dioxide Level 23, Anion Gap 12, Blood Urea Nitrogen 11, Creatinine 0.61, Estimat Glomerular Filtration Rate 100, BUN/Creatinine Ratio 18, Glucose Level 113, Calcium Level 9.7, Corrected Calcium 9.7, Total B ilirubin 0.6, Aspartate Amino Transf (AST/SGOT) 34, Alanine Aminotransferase (ALT/SGPT) 39, Alkaline Phosphatase 101, Total Protein 7.1, Albumin 4.0 Discussion & Recommendations Home Medications Reviewed patient Home Medication Reconciliation performed by pharmacy medication reconciliations roof service technician and/or nursing. Patients Allergies have been reviewed. Discharge Home Medications: Reviewed and agree with Discharge Medication list on patient's Discharge Instruction sheet Clinical Quality Measures AMI/AHF: ASA po Prior to arrival: Yes AMADO ROMERO MD FACP [facility] CCDS Mar 02, 2022 11:57
--- NOTE | 2022-03-14 13:57 | Conscious Sedation/ASA ---
Conscious Sedation Pre-Proced ASA Score For ASA 3 and 4: Consider anesthesia and medical clearance. Also, for patients with a history of failed moderate sedation consider anesthesia. Airway Lungs Heart ASA score ASA 1: a normal healthy patient ASA 2: a patient with a mild systemic disease (mid diabetes, controlled hypertension, obesity ASA 3: a patient with a severe systemic disease that limits activity (angina, COPD, prior Myocardial infarction) ASA 4: a patient with an incapacitating disease that is a constant threat to life (CHF, renal failure) ASA 5: a moribund patient not expected to survive 24 hrs. (ruptured aneurysm) ASA 6: a declared brain- patient whose organs are being harvested. For emergent operations, add the letter E after the classification Sedation Plan The patient is an appropriate candidate to undergo the planned procedure, sedation, and anesthesia. The patient immediately re-assessed prior to indication. ERA,MayMar 14, 2022 13:57
== END 2022-03-02 11:49 | disposition home or self-care (01) | DRG 246 ==
LOC: EDUNIT# 16:23 → ER FS 16:24 → CATH 18:02 → ICU 19:16 → 4TH 03-01 16:06
PROVIDERS: ADMIT Internal Medicine Cardiovascular Disease; ATTEND Internal Medicine Cardiovascular Disease
PROC: 027034Z Dilation of Coronary Artery, One Artery with Drug-eluting Intraluminal Device, Percutaneous Approach (ICD-10-PCS; principal; 2022-02-27)
PROC: 4A023N7 Measurement of Cardiac Sampling and Pressure, Left Heart, Percutaneous Approach (ICD-10-PCS; 2022-02-27)
PROC: B2111ZZ Fluoroscopy of Multiple Coronary Arteries using Low Osmolar Contrast (ICD-10-PCS; 2022-02-27)
PROC: 5A2204Z Restoration of Cardiac Rhythm, Single (ICD-10-PCS; 2022-02-27)
PROC: B2151ZZ Fluoroscopy of Left Heart using Low Osmolar Contrast (ICD-10-PCS; 2022-02-27)
DX: I21.4 Non-ST elevation (NSTEMI) myocardial infarction (principal); I46.9 Cardiac arrest, cause unspecified; I49.01 Ventricular fibrillation; I25.119 Atherosclerotic heart disease of native coronary artery with unspecified angina pectoris; I10 Essential (primary) hypertension; F17.210 Nicotine dependence, cigarettes, uncomplicated; E11.9 Type 2 diabetes mellitus without complications; E78.00 Pure hypercholesterolemia, unspecified; Z79.84 Long term (current) use of oral hypoglycemic drugs; Z79.82 Long term (current) use of aspirin; Z88.5 Allergy status to narcotic agent
CPT/HCPCS: 36415; 71045; 80053; 80061; 82947; 83690; 83735; 83880; 84100; 84484; 85007; 85025; 85027; 85610; 85730; 87081; 93005; 93041; 93306; 93458; 94664; 96365; 96375